=== PATIENT | female | born 1970 | race African-American/Black ===

== ENCOUNTER 2018-12-07 15:41 | Inpatient (IN) | payer OTHER ==
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
[2018-12-07] MEDS ORDERED: MAG HYDROX/AL HYDROX/SIMETH 30 ML UNIT-DOSE CUP PO PRN (18:42)
[2018-12-07] MEDS ORDERED: ACETAMINOPHEN 325 MG TABLET (FP) PO PRN ×2 (18:42)
[2018-12-07] MEDS ORDERED: MAGNESIUM CITRATE 300 ML BOTTLE PO PRN (18:42)
[2018-12-07] MEDS ORDERED: chlordiazePOXIDE HCL 25 MG CAPSULE PO PRN (18:42)
[2018-12-07] MEDS ORDERED: IBUPROFEN 400 MG TABLET (FP) PO PRN (18:42)
[2018-12-07] MEDS ORDERED: MAGNESIUM HYDROX 2400MG/30ML ORAL SUSPENSION 30 ML CUP PO PRN (18:42)
[2018-12-07] MEDS ORDERED: MELATONIN 5 MG TABLETS PO PRN (18:42)
[2018-12-07] MEDS ORDERED: cloNIDine HCL 0.1 MG TABLET PO PRN (18:42)
[2018-12-07] MEDS ORDERED: MENTHOL/PHENOL 1 EACH UD MM PRN (18:42)
[2018-12-07] MEDS ORDERED: NICOTINE POLACRILEX 2 MG GUM BUC PRN (18:42)
[2018-12-07] MEDS ORDERED: ALBUTEROL SO4 8 GM HFA INHALER IH PRN (18:45)
[2018-12-07] MEDS ORDERED: METHADONE HCL 10 MG TABLET (FOR DETOX USE ONLY) PO ONE ×2 (19:30→23:00)
[2018-12-07] MEDS: cloNIDine HCL 0.1 MG TABLET PO SCH (20:01)
[2018-12-07] MEDS: THIAMINE HCL 100 MG TABLET (FP) PO SCH (22:27)
[2018-12-07] MEDS: chlordiazePOXIDE HCL 25 MG CAPSULE PO SCH (22:27)
[2018-12-08] MEDS: chlordiazePOXIDE HCL 25 MG CAPSULE PO SCH ×4 (06:50→22:11)
[2018-12-08] MEDS ORDERED: METHADONE HCL 5 MG TABLET (FOR DETOX USE ONLY) PO ONE (10:00)
[2018-12-08] MEDS: PRENATAL VITAMINS W/ FOLIC ACID TABLET (FP) PO SCH (10:02)
[2018-12-08] MEDS: cloNIDine HCL 0.1 MG TABLET PO SCH (10:02)
[2018-12-08] MEDS: NICOTINE 14 MG/24 HOURS TOPICAL PATCH TD SCH (10:02)
[2018-12-08] MEDS: BISMUTH SUBSALICYLATE 524 MG/30 ML UD PO PRN ×3 (10:03→17:26)
--- NOTE | 2018-12-08 14:41 | CONSULT ---
[facility] Psychiatric Consult - Data Date of interview: 12/08/18 Admission source: [facility] Identifying data: First admission to [facility] for this 48 y/o AA female self- referred for detoxification (alcohol, heroin, cocaine). Examined at [address] [place] [address]. Patient is single, a mother of three, homeless, unemployed and supported on Public Assistance. Substance Abuse History: Discussed with patient in this interview. Mr Parkinson admits to using 3-4 bags of heroin jacobs since 2015 + consuming 1/2-1 pint of vodka/3 cans of beer since age 17 + smoking up to 20 vials of crack/cocaine daily since age 21. First contact with [facility]. Details in current [facility] report as follows : Smoking history: Current every day smoker. Have you smoked in the past 12 months: Yes. Aproximately how many cigarettes per day: 4. Hx Chewing Tobacco Use: No. Initiated information on smoking cessation: Yes. 'Breaking Loose' booklet given: 12/07/18. - Substance & Tx. History. Hx Alcohol Use: Yes. Hx Substance Use: Yes. Substance Use Type: Alcohol, Cocaine, Heroin. Hx Substance Use Treatment: Yes (Last detox [facility] three months ago ). - Substances abused. Alcohol. Substance route: Oral. Frequency: Daily. Amount used: 1/2 pint + three cans x 24 oz of beer,. Age of first use: 17. Date of last use: 12/07/18. Heroin. Substance route: Inhalation. Frequency : Daily. Amount used: 3 bags per day four the past four years,. Age of first use: 44. Date of last use: 12/07/18 Medical History: Reamarkable for GERD, hypertension, diabetes mellitus, Crohn' disease, anemia, hepatitis B + C, glaucoma, abdominal surgery for cancer ( reversible colostomy) and a history of treatment for syphilis. Psychiatric History: Patient admits to a history of psychiatric hospitalizations , mostly in [place] ([facility]). Diagnosed with MDD and Schizophrenia. Ms Parkinson states that she gets her outpatient psychiatric services at a mental health clinic " [place] ". Medicated with remeron 45 mg/hs + clonazepam 10 mg po tid (?). patient is not a reliable historian. Offers a questionable history of suicide attempts (means and dates not recalled). Physical/Sexual Abuse/Trauma History: Patient declines to discuss this domain. Additional Comment: Urine drug screen results: AJIT-Cocaine, FEN-Fentanyl, MOP- Opiates, MTD-Methadone. Noted. Mental Status Exam - Mental Status Exam Alert and Oriented to: Time, Place, Person Cognitive Function: Good Patient Appearance: Disheveled (thin habitus) Mood: Nervous, Withdrawn, Anxious Affect: Mood Congruent, Constricted Patient Behavior: Fatigued, Cooperative Speech Pattern: Clear, Appropriate Voice Loudness: Normal Thought Process: Goal Oriented Thought Disorder: Not Present Hallucinations: Denies Suicidal Ideation: Denies Homicidal Ideation: Denies Insight/Judgement: Poor Sleep: Poorly, Difficulty falling asleep Appetite: Poor, Weight loss Muscle strength/Tone: Normal Gait/Station: Normal Psychiatric Findings - Problem List ([place] 1, 2,3) (1) Alcohol dependence with uncomplicated withdrawal Current Visit: Yes Status: Acute (2) Opioid dependence with withdrawal Current Visit: Yes Status: Acute (3) Cocaine dependence Current Visit: Yes Status: Chronic (4) Nicotine dependence Current Visit: Yes Status: Chronic Qualifiers: Nicotine product type: cigarettes (5) Substance induced mood disorder Current Visit: Yes Status: Chronic (6) Insomnia Current Visit: Yes Status: Chronic - Initial Treatment Plan Initial Treatment Plan: Psychoeducation. Sleep hygiene. Detoxification. Support. Relapse prevention discussed with the patient. Medications : remeron 15 mg po hs. Side effects/benefits discussed. Consent (verbal) granted to MD. [place]
[2018-12-08] MEDS ORDERED: PROCHLORPERAZINE MALEATE 5 MG TABLET PO PRN (15:30)
--- NOTE | 2018-12-08 15:32 | PN ---
S CIWA - CIWA Score Nausea/Vomitin Muscle Tremors: None Anxiety: 3 Agitation: 0-Normal Activity Paroxysmal Sweats: 3 Orientation: 0-Oriented Tacttile Disturbances: 2-Mild Itch/Numbness/Burn Auditory Disturbances: 0-None Visual Disturbances: 2-Mild Sensitivity Headache: 0-None Present CIWA-Ar Total Score: 15 BHS COWS - Scale Resting Pulse: 0= [place] 80 or Below Sweatin= Chills/Flushing Restless Observation: 0= Sits Still Pupil Size: 0= Normal to Room Light Bone or Joint Aches: 0= None Runny Nose/ Eye Tearin= Runny Nose/Eyes GI Upset > 30mins: 3= Vomiting/Diarrhea Tremor Observation of Outstretched Hands: 0= None Yawning Observation: 2= >3x During Session Anxiety or Irritability: 2=Irritable/Anxious Goose Flesh Skin: 0=Smooth Skin COWS Score: 10 BHS Progress Note (SOAP) Subjective: Sweating, Anxious, Diarrhea, Nasal Congestion, Vomiting. Objective: PATIENT A & O X 3, OBSERVED AMBULATING ON UNIT. IN NO ACUTE DISTRESS. 12/08/18 15:35 Vital Signs Temperature 98.3 F 12/08/18 13:36 Pulse Rate 63 12/08/18 13:36 Respiratory Rate 18 12/08/18 13:36 Blood Pressure 113/74 12/08/18 13:36 O2 Sat by Pulse Oximetry (%) Laboratory Tests 12/08/18 06:33 POC Glucometer 92 OTHER ADMISSION LAB RESULTS PENDING. 12/08/18 15:36 Assessment: 12/08/18 15:36 WITHDRAWAL SYMPTOMS. Plan: CONTINUE DETOX. INCREASE DAILY PO FLUID INTAKE. PRN PEPTO-BISMOL PO FOR DIARRHEA. PRN COMPAZINE PO FOR NAUSEA / VOMITING.
[2018-12-08] MEDS: THIAMINE HCL 100 MG TABLET (FP) PO SCH (22:11)
[2018-12-08] MEDS: MIRTAZAPINE 15 MG TABLET (FP) PO SCH (22:11)
[2018-12-09] MEDS: chlordiazePOXIDE HCL 25 MG CAPSULE PO SCH ×3 (06:09→17:47)
[2018-12-09] MEDS: NICOTINE 14 MG/24 HOURS TOPICAL PATCH TD SCH (09:33)
[2018-12-09] MEDS: PRENATAL VITAMINS W/ FOLIC ACID TABLET (FP) PO SCH (09:35)
[2018-12-09] MEDS: cloNIDine HCL 0.1 MG TABLET PO SCH (09:35)
[2018-12-09] MEDS ORDERED: METHADONE HCL 10 MG TABLET (FOR DETOX USE ONLY) PO ONE (10:00)
[2018-12-09] MEDS ORDERED: hydrOXYzine PAMOATE 25 MG CAPSULE (FP) PO PRN (11:42)
--- NOTE | 2018-12-09 11:46 | PN ---
[facility] CIWA - CIWA Score Nausea/Vomitin-Mild Nausea/No Vomiting Muscle Tremors: 2 Anxiety: 2 Agitation: 2 Paroxysmal Sweats: 1-Minimal Palms Moist Orientation: 0-Oriented Tacttile Disturbances: 0-None Auditory Disturbances: 0-None Visual Disturbances: 0-None Headache: 1-Very Mild CIWA-Ar Total Score: 9 BHS COWS - Scale Resting Pulse: 1= [place] 81-100 Sweatin= Chills/Flushing Restless Observation: 1= Difficult to Sit Still Pupil Size: 0= Normal to Room Light Bone or Joint Aches: 1= Mild Discomfort Runny Nose/ Eye Tearin= Nasal Congestion GI Upset > 30mins: 1= Stomach Cramp Tremor Observation of Outstretched Hands: 1= Tremor [place], Not Seen Yawning Observation: 0= None Anxiety or Irritability: 1=Feels Anxious/Irritable Goose Flesh Skin: 0=Smooth Skin COWS Score: 8 BHS Progress Note (SOAP) Subjective: pt states feels "so-so" today, day #3 of dual detox. O: Vital Signs - 24 hr 12/08/18 12/08/18 12/08/18 13:36 18:07 21:40 Temperature 98.3 F 98.5 F 99.1 F Pulse Rate 63 57 L 70 Respiratory 18 18 16 Rate Blood Pressure 113/74 94/54 L 112/70 12/09/18 12/09/18 12/09/18 00:30 03:30 06:16 Temperature 97.4 F L Pulse Rate 60 Respiratory 18 18 18 Rate Blood Pressure 102/64 12/09/18 12/09/18 06:30 09:38 Temperature 96.2 F L Pulse Rate 66 Respiratory 18 16 Rate Blood Pressure 100/62 Laboratory Tests 12/08/18 12/08/18 06:33 16:45 POC Glucometer 92 101 labs pending BP lowish on clonidine 0.3mg/day a/p: continue dual detox protocol- pt still feels anxious and feels like she is in withdrawal d/w pt availability of meds for sx that she can ask for as needed will decrease standing order clonidine to 0.1 mg qd and pt has clonidine 0.1 mg q4h prn for sx along with vistaril and benzo
[2018-12-09 12:25] LABS: ALBUMIN 2.5 g/dl (3.4-5.0); ALK PHOS 71 U/L (45-117); ANION GAP 4 MMOL/L (8-16); BILIRUBIN,TOTAL 0.3 mg/dL (0.2-1); BLOOD UREA NITROGEN 13 mg/dL (7-18); CALCIUM 7.8 mg/dL (8.5-10.1); CHLORIDE 110 mmol/L (98-107); CO2 31 mmol/L (21-32); CREATININE 0.8 mg/dL (0.55-1.3); GLUCOSE,RANDOM 80 mg/dL (74-106); POTASSIUM 3.6 mmol/L (3.5-5.1); SGOT/AST 7 U/L (15-37); SGPT/ALT 11 U/L (13-61); SODIUM 146 mmol/L (136-145); TOT PROT 5.4 g/dl (6.4-8.2)
[2018-12-09 12:33] LABS: HEMATOCRIT 31.8 % (32.4-45.2); MCH 26.6 pg (25.7-33.7); MCHC 31.4 g/dl (32.0-36.0); MEAN CELL VOLUME 84.6 fl (80-96); MEAN PLT VOLUME 10.7 fl (7.5-11.1); PLATELET COUNT 139 K/MM3 (134-434); RBC 3.76 M/mm3 (3.60-5.2); WHITE BLOOD COUNT 5.8 K/mm3 (4.0-10.0)
[2018-12-09] MEDS: chlordiazePOXIDE HCL 10 MG CAPSULE PO SCH (22:09)
[2018-12-09] MEDS: MIRTAZAPINE 15 MG TABLET (FP) PO SCH (22:09)
[2018-12-09] MEDS: THIAMINE HCL 100 MG TABLET (FP) PO SCH (22:09)
[2018-12-09] MEDS ORDERED: chlordiazePOXIDE HCL 10 MG CAPSULE PO PRN (23:00)
[2018-12-10] MEDS ORDERED: METHADONE HCL 5 MG TABLET (FOR DETOX USE ONLY) PO ONE (06:00)
[2018-12-10] MEDS: chlordiazePOXIDE HCL 10 MG CAPSULE PO SCH ×4 (06:28→22:41)
[2018-12-10] MEDS: NICOTINE 14 MG/24 HOURS TOPICAL PATCH TD SCH (10:27)
[2018-12-10] MEDS: cloNIDine HCL 0.1 MG TABLET PO SCH (10:27)
[2018-12-10] MEDS: PRENATAL VITAMINS W/ FOLIC ACID TABLET (FP) PO SCH (10:27)
--- NOTE | 2018-12-10 17:22 | PN ---
BHS Progress Note (SOAP) Subjective: Sweating, Fatigue, Anxious. Objective: PATIENT A & O X 3, OBSERVED AMBULATING ON UNIT. IN NO ACUTE DISTRESS. 12/10/18 17:25 Vital Signs Temperature 98.1 F 12/10/18 14:14 Pulse Rate 64 12/10/18 14:14 Respiratory Rate 18 12/10/18 14:14 Blood Pressure 130/81 12/10/18 14:14 O2 Sat by Pulse Oximetry (%) Laboratory Tests 12/08/18 12/08/18 12/09/18 06:33 16:45 07:00 WBC 5.8 RBC 3.76 Hgb 10.0 L Hct 31.8 L MCV 84.6 MCH 26.6 MCHC 31.4 L RDW 15.0 Plt Count 139 MPV 10.7 Sodium Potassium Chloride Carbon Dioxide Anion Gap BUN Creatinine Creat Clearance w eGFR POC Glucometer 92 101 Random Glucose Calcium Total Bilirubin AST ALT Alkaline Phosphatase Total Protein Albumin RPR Titer 12/09/18 12/09/18 07:00 07:00 WBC RBC Hgb Hct MCV MCH MCHC RDW Plt Count MPV Sodium 146 H Potassium 3.6 Chloride 110 H Carbon Dioxide 31 Anion Gap 4 L BUN 13 Creatinine 0.8 Creat Clearance w eGFR 75.93 POC Glucometer Random Glucose 80 Calcium 7.8 L Total Bilirubin 0.3 AST 7 L ALT 11 L Alkaline Phosphatase 71 Total Protein 5.4 L Albumin 2.5 L RPR Titer Nonreactive LABS NOTED. Assessment: 12/10/18 17:25 WITHDRAWAL SYMPTOMS. HYPOCALCEMIA. ANEMIA. 12/10/18 17:26 Plan: CONTINUE DETOX. INCREASE DAILY PO FLUID INTAKE. OSCAL, 500 MG PO BID FOR HYPOCALCEMIA. PATIENT IS CURRENTLY RECEIVING DAILY MVI CONTAINING B VITAMINS AND IRON WHILE ADMITTED FOR DETOX.
[2018-12-10] MEDS: MIRTAZAPINE 15 MG TABLET (FP) PO SCH (22:41)
[2018-12-10] MEDS: THIAMINE HCL 100 MG TABLET (FP) PO SCH (22:41)
[2018-12-10] MEDS: CALCIUM 500MG/VIT-D 200 UNITS COMBO TABLET (FP) PO SCH (22:41)
[2018-12-11] MEDS: SODIUM CHLORIDE NASAL SPRAY 44 ML BOTTLE NS PRN ×2 (08:38→19:02)
[2018-12-11] MEDS: chlordiazePOXIDE HCL 10 MG CAPSULE PO SCH ×2 (10:15→22:34)
[2018-12-11] MEDS: cloNIDine HCL 0.1 MG TABLET PO SCH (10:15)
[2018-12-11] MEDS: CALCIUM 500MG/VIT-D 200 UNITS COMBO TABLET (FP) PO SCH ×3 (10:15→23:15)
[2018-12-11] MEDS: PRENATAL VITAMINS W/ FOLIC ACID TABLET (FP) PO SCH (10:15)
[2018-12-11] MEDS: NICOTINE 14 MG/24 HOURS TOPICAL PATCH TD SCH (10:18)
[2018-12-11] MEDS: METHOCARBAMOL 500 MG TABLET PO PRN ×2 (14:21→23:18)
--- NOTE | 2018-12-11 16:17 | PN ---
BHS Progress Note (SOAP) Subjective: Anxious, Restless. Objective: PATIENT A & O X 3, OBSERVED AMBULATING ON UNIT. IN NO ACUTE DISTRESS. 12/11/18 16:15 Vital Signs Temperature 97.8 F 12/11/18 09:20 Pulse Rate 86 12/11/18 09:20 Respiratory Rate 18 12/11/18 09:20 Blood Pressure 106/74 12/11/18 09:20 O2 Sat by Pulse Oximetry (%) Laboratory Tests 12/08/18 12/08/18 12/09/18 06:33 16:45 07:00 WBC 5.8 RBC 3.76 Hgb 10.0 L Hct 31.8 L MCV 84.6 MCH 26.6 MCHC 31.4 L RDW 15.0 Plt Count 139 MPV 10.7 Sodium Potassium Chloride Carbon Dioxide Anion Gap BUN Creatinine Creat Clearance w eGFR POC Glucometer 92 101 Random Glucose Calcium Total Bilirubin AST ALT Alkaline Phosphatase Total Protein Albumin RPR Titer 12/09/18 12/09/18 07:00 07:00 WBC RBC Hgb Hct MCV MCH MCHC RDW Plt Count MPV Sodium 146 H Potassium 3.6 Chloride 110 H Carbon Dioxide 31 Anion Gap 4 L BUN 13 Creatinine 0.8 Creat Clearance w eGFR 75.93 POC Glucometer Random Glucose 80 Calcium 7.8 L Total Bilirubin 0.3 AST 7 L ALT 11 L Alkaline Phosphatase 71 Total Protein 5.4 L Albumin 2.5 L RPR Titer Nonreactive LABS NOTED. Assessment: 12/11/18 16:17 WITHDRAWAL SYMPTOMS. Plan: CONTINUE DETOX. PATIENT SCHEDULED FOR D/C TOMORROW.
[2018-12-11 18:28] VITALS: BP 154/92; PULSE 71; TEMP 98.9
[2018-12-11] MEDS: MIRTAZAPINE 15 MG TABLET (FP) PO SCH (22:32)
[2018-12-11] MEDS: THIAMINE HCL 100 MG TABLET (FP) PO SCH ×2 (22:32→23:16)
[2018-12-12] MEDS: METHOCARBAMOL 500 MG TABLET PO PRN (08:44)
[2018-12-12] MEDS: SODIUM CHLORIDE NASAL SPRAY 44 ML BOTTLE NS PRN (08:44)
--- NOTE | 2018-12-12 19:40 | DS ---
[facility] Detox Discharge Summary Admission Date: 12/07/18 Discharge Date: 12/12/18 - History Present History: Alcohol Dependence, Cocaine Dependence, Opioid Dependence Additional Comments: PATIENT GOING TO [facility] ([place], [place]) FOR AFTERCARE. PATIENT WAS DISCHARGED FROM DETOX UNIT IN STABLE MEDICAL CONDITION. Pertinent Past History: Hep B, Hep C, HTN, G.E.R.D., Asthma, Chron's Disease, Type II DM, Anemia, History Of Depression, Hypocalcemia, History of Abdominal Cancer. - Physical Exam Results Vital Signs: Vital Signs Temperature 98.9 F 12/11/18 18:26 Pulse Rate 71 12/11/18 18:26 Respiratory Rate 18 12/12/18 03:30 Blood Pressure 154/92 12/11/18 18:26 O2 Sat by Pulse Oximetry (%) Pertinent Admission Physical Exam Findings: WITHDRAWAL SYMPTOMS. Laboratory Tests 12/08/18 12/08/18 12/09/18 06:33 16:45 07:00 WBC 5.8 RBC 3.76 Hgb 10.0 L Hct 31.8 L MCV 84.6 MCH 26.6 MCHC 31.4 L RDW 15.0 Plt Count 139 MPV 10.7 Sodium Potassium Chloride Carbon Dioxide Anion Gap BUN Creatinine Creat Clearance w eGFR POC Glucometer 92 101 Random Glucose Calcium Total Bilirubin AST ALT Alkaline Phosphatase Total Protein Albumin RPR Titer 12/09/18 12/09/18 07:00 07:00 WBC RBC Hgb Hct MCV MCH MCHC RDW Plt Count MPV Sodium 146 H Potassium 3.6 Chloride 110 H Carbon Dioxide 31 Anion Gap 4 L BUN 13 Creatinine 0.8 Creat Clearance w eGFR 75.93 POC Glucometer Random Glucose 80 Calcium 7.8 L Total Bilirubin 0.3 AST 7 L ALT 11 L Alkaline Phosphatase 71 Total Protein 5.4 L Albumin 2.5 L RPR Titer Nonreactive LABS NOTED. - Treatment Hospital Course: Detox Protocol Followed, Detoxed Safely, Responded well, Discharged Condition Good, Rehab Referral Accepted Patient has Accepted a Rehab Referral to: [facility] ([place], [place]). - Medication Discharge Medications: Ambulatory Orders Albuterol Sulfate [Albuterol Sulfate Hfa] 2 inhaler .ROUTE PRN 12/07/18 Nebulizer [Aeroneb Go Nebulizer] 8.5 mg PRN 12/07/18 Omeprazole Magnesium [Prilosec Otc] 40 mg PO DAILY 12/07/18 Remeron 45 mg PO HS 12/07/18 Albuterol Sulfate Inhaler - [Ventolin Hfa Inhaler -] 1 - 2 inh PO Q4H PRN #1 inhaler 12/12/18 - Diagnosis (1) Alcohol dependence with uncomplicated withdrawal Status: Acute (2) Anemia Status: Acute Qualifiers: Anemia type: unspecified type Qualified Code(s): D64.9 - Anemia, unspecified (3) Hypocalcemia Status: Acute (4) Opioid dependence with withdrawal Status: Acute (5) Cocaine dependence Status: Chronic Qualifiers: Substance use status: uncomplicated Qualified Code(s): F14.20 - Cocaine dependence, uncomplicated (6) Crohns disease Status: Chronic Qualifiers: Gastrointestinal tract location: unspecified location Digestive disease complication type: unspecified complication Qualified Code(s): K50.919 - Crohn 's disease, unspecified, with unspecified complications (7) Diabetes mellitus Status: Chronic Qualifiers: Diabetes mellitus type: type 2 Diabetes mellitus nursing home insulin use: without oil heaterman use Diabetes mellitus complication status: without complication Qualified Code(s): E11.9 - Type 2 diabetes mellitus without complications (8) Essential (primary) hypertension Status: Chronic (9) GERD (gastroesophageal reflux disease) Status: Chronic Qualifiers: Esophagitis presence: without esophagitis Qualified Code(s): K21.9 - Gastro -esophageal reflux disease without esophagitis (10) Insomnia Status: Chronic Qualifiers: Insomnia type: unspecified Qualified Code(s): G47.00 - Insomnia, unspecified (11) Nicotine dependence Status: Chronic Qualifiers: Nicotine product type: cigarettes Substance use status: uncomplicated Qualified Code(s): F17.210 - Nicotine dependence, cigarettes, uncomplicated (12) Substance induced mood disorder Status: Chronic - AMA Did Patient Leave Against Medical Advice: No
== END 2018-12-12 09:35 | disposition home or self-care (01) | DRG 773 ==
LOC: YASAS 15:41 → Y3N 19:16
PROVIDERS: ADMIT Surgery; ATTEND Surgery
PROC: HZ2ZZZZ Detoxification Services for Substance Abuse Treatment (ICD-10-PCS; principal; 2018-12-07)
DX: F11.23 Opioid dependence with withdrawal (principal); F10.230 Alcohol dependence with withdrawal, uncomplicated; F14.20 Cocaine dependence, uncomplicated; F17.210 Nicotine dependence, cigarettes, uncomplicated; F19.24 Other psychoactive substance dependence with psychoactive substance-induced mood disorder; G47.00 Insomnia, unspecified; E11.9 Type 2 diabetes mellitus without complications; Z79.84 Long term (current) use of oral hypoglycemic drugs; I10 Essential (primary) hypertension; K21.9 Gastro-esophageal reflux disease without esophagitis; K50.919 Crohn's disease, unspecified, with unspecified complications; F64.9 Gender identity disorder, unspecified; Z86.19 Personal history of other infectious and parasitic diseases
CPT/HCPCS: 36415; 80053; 82962; 85027; 86593; J0735